=== PATIENT | male | born 1965 | race Caucasian/White ===

== ENCOUNTER → 2019-05-21 | Day surgery (SDC) | payer BC ==
[2019-05-19 16:01] LABS: BASOPHILS % 0.4 % (0.0-1.0); EOSINOPHILS # (AUTO) 0.4 (0.0-0.4); EOSINOPHILS % 4.5 % (0.0-6.0); HEMATOCRIT 45.1 % (38.2-49.6); HEMOGLOBIN 15.3 g/dL (14.0-18.0); LYMPHOCYTES # (AUTO) 1.7 (1.0-3.2); MEAN CORPUSCULAR HEMOGLOBIN 33.5 pg (28-32); MEAN CORPUSCULAR HGB CONC 33.9 g/dL (31-35); MEAN CORPUSCULAR VOLUME 98.7 fL (81-99); MONOCYTES # (AUTO) 0.9 (0.2-0.8); MONOCYTES % 9.2 % (4.4-11.3); NEUTROPHILS # (AUTO) 6.4 (2.1-6.9); NEUTROPHILS % 67.5 % (38.7-80.0); PLATELET COUNT 275 x10e3/uL (140-360); RED BLOOD COUNT 4.57 x10e6/uL (4.3-5.7); RED CELL DISTRIBUTION WIDTH 12.4 % (11.7-14.4)
[2019-05-19 16:09] LABS: INR 0.88; PROTHROMBIN TIME 12.4 seconds (11.9-14.5)
[2019-05-19 16:16] LABS: ALANINE AMINOTRANSFERASE 29 IU/L (0-55); ALBUMIN 3.9 g/dL (3.5-5.0); ALBUMIN/GLOBULIN RATIO 1.1 (0.8-2.0); ALKALINE PHOSPHATASE 66 IU/L (40-150); BLOOD UREA NITROGEN 8 mg/dL (7-26); BUN/CREATININE RATIO 9 (6-25); CALCIUM 9.6 mg/dL (8.4-10.2); CARBON DIOXIDE 25 mmol/L (22-29); CHLORIDE 100 mmol/L (98-107); CREATININE, SERUM 0.88 mg/dL (0.72-1.25); EST GLOMERULAR FILTRATION RATE > 60 ML/MIN (60-); GLUCOSE 79 mg/dL (74-118); SODIUM 135 mmol/L (136-145)
[~2019-05-21] VITALS: Ht 172.7 cm; Wt 77.1 kg
[~2019-05-21] MED LIST: FENTANYL CITRATE/PF 100MCG/2 ML INJ ONE; HEPARIN SOD/SOD CHLORIDE 2,000 ML ONE; IOPAMIDOL 370 MG/ML 200 ML INFUS..BTL INJ ONE; LEVOTHYROXINE50 MCG PO; LIDOCAINE HCL 2% LOCAL 20 ML VIAL ONE; LIOTHYRONINE SO5 MCG PO; LOSARTAN POTASS25 MG PO; MIDAZOLAM HCL 2 MG/2 ML VIAL ONE; SODIUM CHLORIDE 0.9% 1000ML 1,000 ML ONE; VERAPAMIL HCL 2.5 MG/ML 2 ML VIAL ONE
--- OUTSIDE RECORDS SUMMARY | 2019-05-21 07:37 | XMS REPORT | Clinical Summary ---
Author Author [facility] Organization [place] [facility] Address Unknown Phone Unavailable Care Team Providers Care [employer] Insurance [employer]iller Name Role Phone System, Provider Not In MD PCP Unavailable Allergies Comments Active Allergy Reactions Severity Noted Date Penicillins Swelling High 03/09/2019 Medications End Date Status Medication Sig Dispensed Refills Start Date Active levothyroxine (SYNTHROID, Take 50 mcg 0 LEVOXYL) 50 mcg tablet by mouth daily. 03/14/2019 predniSONE (DELTASONE) 20 Take 2 10 tablet 0 201 mg tablet tablets (40 9 mg total) by mouth daily for 5 days. Active Problems Not on file Encounters Care Team Description Date Type Specialty Robson Sanchez MD Atypical chest pain (Primary Dx); Uncomplicated asthma, unspecified asthma severity, unspecified whether persistent 03/09/2019 Emergency Emergency Medicine 03/09/2019 Travel after 05/20/2018 Social History Date Tobacco Use Types Packs/Day Years Used Former Smoker Smokeless Tobacco: Chew Current User Drinks/Week oz/Week Comments Alcohol Use 5 Cans of beer 5.0 Yes Sex Assigned at Date Recorded Not on file Industry Job Start Date Occupation Not on file Not on file Not on file Travel End Travel History Travel Start No recent travel history available. Last Filed Vital Signs Reading Time Taken Comments Vital Sign 176/75 03/09/2019 3:22 PM CDT Blood Pressure 86 03/09/2019 3:22 PM CDT Pulse 37.2 C (99 F) 03/09/2019 1:19 PM CDT Temperature 18 03/09/2019 3:22 PM CDT Respiratory Rate 95% 03/09/2019 3:22 PM CDT Oxygen Saturation - - Inhaled Oxygen Concentration - - Weight 172.7 cm (5' 8") 03/09/2019 1:19 PM CDT Height - - Body Mass Index Plan of Treatment Health Maintenance Due Date Last Done Comments COLONOSCOPY SCREENING 2015 SHINGLES VACCINES (#1) 2015 INFLUENZA VACCINE 03/26/2019 Procedures Comments Procedure Name Priority Date/Time Associated Diagnosis XR CHEST 1 VW PORTABLE STAT 03/09/2019 1:48 PM CDT D-DIMER STAT 03/09/2019 1:38 PM CDT ESTIMATED GFR STAT 03/09/2019 1:38 PM CDT B NATRIURETIC PEPTIDE STAT 03/09/2019 1:38 PM CDT TROPONIN STAT 03/09/2019 1:38 PM CDT CREATINE KINASE, TOTAL STAT 03/09/2019 (CPK) 1:38 PM CDT LIPASE LEVEL STAT 03/09/2019 1:38 PM CDT HEPATIC FUNCTION PANEL STAT 03/09/2019 1:38 PM CDT BASIC METABOLIC PANEL STAT 03/09/2019 1:38 PM CDT HC COMPLETE BLD COUNT STAT 03/09/2019 W/AUTO DIFF 1:38 PM CDT ECG ED PRELIMINARY Routine 03/09/2019 INTERPRETATION 1:32 PM CDT ECG 12-LEAD STAT 03/09/2019 1:29 PM CDT after 05/20/2018 Results * XR Chest 1 Vw Portable (03/09/2019 1:48 PM CDT) Specimen Narrative Performed At EXAMINATION:XR CHEST 1 VW PORTABLE RADIANT CLINICAL HISTORY:SOB XR CHEST 1 VW PORTABLEimages are submitted COMPARISON:NONE FINDINGS: The cardiac silhouette is normal in size. The pulmonary vasculature is within normal limits. The lung zones have no focal area of consolidation. There is no pleural effusion or pneumothorax. The lung zones are hyperinflated. There is no focal consolidation. IMPRESSION: 1. There is no acute cardiopulmonary disease. 2. The lung zones are hyperinflated. [id number] Procedure Note Hm Interface, Radiology Results Incoming - 03/09/2019 1:55 PM CDT EXAMINATION: XR CHEST 1 VW PORTABLE CLINICAL HISTORY: SOB XR CHEST 1 VW PORTABLE images are submitted COMPARISON: NONE FINDINGS: The cardiac silhouette is normal in size. The pulmonary vasculature is within normal limits. The lung zones have no focal area of consolidation. There is no pleural effusion or pneumothorax. The lung zones are hyperinflated. There is no focal consolidation. IMPRESSION: 1. There is no acute cardiopulmonary disease. 2. The lung zones are hyperinflated. [facility] [id number] Performing Organization Address City/[facility]/Zipcode Phone Number [place] [address] [place] [address] * Estimated GFR (03/09/2019 1:38 PM CDT) [facility] Estimated GFR 85 mL/min/1.73 m2 [place] Comment: [facility] G1 >=90 Normal or high G2 60-89Mildly decreased [id number] Mildly to moderately decreased [id number] Moderately to severely decreased G4 15-29Severely decreased G5 <15Kidney failure The eGFR was calculated using the Chronic Kidney Disease Epidemiology Collaboration (CKD-EPI) equation. Interpretation is based on recommendations of the National Kidney Foundation-Kidney Disease Outcomes Quality Initiative (NKF-KDOQI) published in 2014. Specimen Plasma specimen Performing Organization Address [facility] Phone Number [facility] [place] [address] [place] [address] HOSPITAL * Troponin (03/09/2019 1:38 PM CDT) [facility] Troponin <0.006 0.000 - 0.040 ng/mL [place] Comment: [facility] changed methodology effective: HOSPITAL 12/30/2018 at 10:00 am The new method has a 99th percentile cutoff of 0.040 ng/mL Specimen Plasma specimen Performing Organization Address [facility] Phone Number [facility] [address] [place] [address] PATHOLOGY AND [facility] MEDICINE [facility] [address] [place] [address] HOSPITAL * D-dimer (03/09/2019 1:38 PM CDT) [facility] D-dimer <0.27 0.00 - 0.40 ug/mL [place] Comment: FEU ANGLICAN Units are ug/ml F[facility]. [facility] When combined with low clinical probability, D-dimer results of less than 0.5 ug/ml FEU have a good negativepredictive value in excluding PE or DVT. For D-dimer results greater than 0.5ug/ml FEU further testing is indicated if PE or DVT is suspectedclinically. Elevated D-dimer results have been reported in DVT, PE, and DIC cases and may indicate the presence of a clot. D-dimer results may be elevated due to old age, , inflammatory diseases, trauma, post-operative states, sepsis, and malignancies. Specimen Blood Performing Organization Address City/State/Zipcode Phone Number [facility] [place] [address] [place] [address] PATHOLOGY AND GENOMIC MEDICINE [facility] [address] * CBC with platelet and differential (03/09/2019 1:38 PM CDT) [facility] WBC 13.4 (H) 4.2 - 11.0 k/uL [facility] RBC 4.19 4.04 - 5.86 m/uL [facility] HGB 14.0 13.0 - 17.3 g/dL [facility] HCT 41.6 34.0 - 45.0 % [facility] MCV 99.3 (H) 80.0 - 98.0 fL [facility] MCH 33.4 27.0 - 34.0 pg [facility] MCHC 33.7 31.5 - 36.5 g/dL [facility] RDW - SD 46.2 37.0 - 51.0 fL [facility] MPV 9.0 7.4 - 10.4 fL [facility] Platelet count 253 150 - 400 k/uL [facility] Nucleated RBC 0.00 /100 WBC [facility] Neutrophils 82.3 (H) 36.0 - 66.0 % [facility] Lymphocytes 7.1 (L) 24.0 - 44.0 % [facility] Monocytes 9.9 (H) 0.0 - 6.0 % [facility] Eosinophils 0.1 0.0 - 6.0 % [facility] Basophils 0.2 0.0 - 1.2 % [facility] Immature 0.4 0.0 - 1.0 % [place] granulocytes [facility] Specimen Blood Performing Organization Address City/[facility] Phone Number [facility] [place] [address] [place] [address] PATHOLOGY AND GENOMIC MEDICINE [address] * B natriuretic peptide (03/09/2019 1:38 PM CDT) Pathologist [facility] BNP 15 0 - 100 pg/mL [facility] Specimen Blood Performing Organization Address City/[facility] Phone Number [facility] [place] [address] [place] [address] PATHOLOGY AND GENOMIC MEDICINE [address] * Lipase level (03/09/2019 1:38 PM CDT) Pathologist [facility] Lipase 33 13 - 60 U/L [facility] Specimen Plasma specimen Performing Organization Address City/[facility] Phone Number [facility] [place] [address] [place] [address] PATHOLOGY AND GENOMIC MEDICINE [address] * Creatine kinase, total (CPK) (03/09/2019 1:38 PM CDT) Pathologist [facility] Creatine kinase 140 39 - 308 U/L [facility] Specimen Plasma specimen Performing Organization Address City/[facility] Phone Number [facility] [place] [address] [place] [address] PATHOLOGY AND GENOMIC MEDICINE [address] * Hepatic function panel (03/09/2019 1:38 PM CDT) Pathologist [facility] Albumin 4.0 3.5 - 5.0 g/dL [facility] Total bilirubin 1.3 (H) 0.2 - 1.2 mg/dL [facility] Bilirubin 0.2 0.0 - 0.4 mg/dL [place] direct [facility] Alkaline 58 0 - 129 U/L [place] phosphatase [facility] Protein 7.2 6.3 - 8.3 g/dL [facility] ALT 32 5 - 50 U/L [facility] AST 27 10 - 50 U/L [facility] Specimen Plasma specimen Performing Organization Address City/[facility] Phone Number [facility] [place] [address] [place] [address] PATHOLOGY AND GENOMIC MEDICINE [address] * Basic metabolic panel (03/09/2019 1:38 PM CDT) [facility] Sodium 136 135 - 150 mEq/L [facility] Potassium 3.9 3.5 - 5.0 mEq/L [facility] Chloride 97 (L) 98 - 112 mEq/L [facility] CO2 25 24 - 31 mmol/L [facility] Anion gap 14@ANIO 7 - 15 mEq/L [facility] BUN 12 7 - 18 mg/dL [facility] Creatinine 1.00 0.70 - 1.20 mg/dL [facility] Glucose 111 (H) 65 - 100 mg/dL [facility] Calcium 8.9 8.3 - 10.2 mg/dL [facility] Specimen Plasma specimen Performing Organization Address City/[facility] Phone Number [facility] [place] [facility] [place] [address] PATHOLOGY AND GENOMIC MEDICINE [address] * ECG ED Preliminary Interpretation - Not an Order (03/09/2019 1:32 PM CDT) Narrative Performed At Robson Sanchez MD 03/09/20192:54 PM ECG ED Preliminary Interpretation - Not an Order Performed by: Robson Sanchez MD Authorized by: Robson Sanchez MD ECG reviewed by ED Physician in the absence of a transport company manager: yes Interpretation: Interpretation: abnormal Rate: ECG rate:103 ECG rate assessment: tachycardic Rhythm: Rhythm: sinus tachycardia Ectopy: Ectopy: none QRS: QRS axis:Normal QRS intervals:Normal Conduction: Conduction: normal ST segments: ST segments:Normal T waves: T waves: flattening Flattening:AVL * ECG 12 lead (03/09/2019 1:29 PM CDT) Ventricular 103 [facility] rate Atrial rate 103 [facility] OR interval 136 [facility] QRSD interval 88 [facility] QT interval 348 [facility] QTC interval 455 [facility] P axis 1 74 [facility] QRS axis 1 63 [facility] T wave axis 64 [facility] EKG impression Sinus tachycardia-Otherwise [facility] normal ECG-No previous ECGs available- Specimen Narrative Performed At Performing Organization Address City/State/Zipcode Phone Number [facility] [address] [place] [address] after 05/20/2018 Insurance Type Payer Benefit Subscriber ID Effective Phone Address Plan / Dates Group PPO BCBS BCBS xxxxxxxxxxxx 2013-P CHOICE resent PPO/IZAIAH DE LOS [place]ANTOS PPO Advance Directives For more information, please contact: [phone] 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
[2019-05-21 08:25] VITALS: BP 126/85
[2019-05-21 10:00] VITALS: BP 117/81
--- NOTE | 2019-05-21 10:00 | NUR ---
100am bedside report received from [place] PRIETO. Identifier x2 .Alert oriented and appropriate, PERRLA, respirations even and unlabored to room air. Pulses x4 extremities equal and strong. Pedal pulses PT/DP x4. Cap fill brisk < 3 sec. Skin warm and dry integrity appears XXX. IV 20g to XXX presents healthy w/o s/s of infiltration or complaint. Abdomen soft and supple. pt offered toileting, denies need to urinate or defecate. No personal affects with patient. Family XXXXX. Pt and family verbalizes understanding of POC. Pre-Op Meds XXXXX. Ppatient transferred from XXXXX by medical lab specialist escort on bed, telemetry pack XXXXX. Currently w/o complaint of pain or need. Patient introduced to cath team and brief summary provided to team. Transferred to procedure table under own strength w/o duress. Patient secured to procedral table and patient prepped in usual fashion for XXXXX procedure. Hypercapnia monitoring intiated. -cgf Addendum: 05/21/19 at 1244 by Lorene Cabrera RN Please disregard above note. 1000am bedside report received from CONNER Osborne. Alert oriented and appropriate, PERRLA, respirations even and unlabored to room air. Pulses x4 extremity equal and strong. Pedal pulses PT/DPx4 Cap fill brisk < 3 sec. Skin warm and dry integrity appears D/I. IV 20g to left site presents healthy w/o s/s of infiltration or complaint. Abdomen soft and supple. pt offered toileting, denies need to urinate or defecate. No personal affects with patient. Family at bedside. Pt and family verbalizes understanding of POC. Currently w/o complaint of pain or need.ds/rn
[2019-05-21 10:15] VITALS: BP 103/87
[2019-05-21 10:30] VITALS: BP 112/89
--- NOTE | 2019-05-21 10:45 | NUR ---
1045 RADIAL Compression removal: Initial Cuff volume 12 cc 1045 -2 cc Removed No hematoma/bleeding noted with normal neurovascular function. 1100a -2cc Removed No hematoma/ bleeding noted with normal neurovascular function. 1115 -2cc Removed No hematoma/bleeding noted with normal neurovascular function. Air removal completed. Stasis achieved sterile 2x2,Tegaderm, Coban dressing No hematoma, bleeding noted with normal neurovascular function. Wrist splint in place. Pt instructed on POC. Ds/Rn
[2019-05-21 11:00] VITALS: BP 114/76
[2019-05-21 11:15] VITALS: BP 117/67
--- NOTE | 2019-05-21 11:45 | NUR ---
1145 Pt meets DC criteria. Rt TR band assessed for s/s of complication and presence of hematoma. Skin warm, dry, no discolor, and pulses present. IV removed from left hand. Distal tip appears intact. VS WNL. Pt denies pain, sob, or need at this time. Family at bedside.Review of discharge paperwork and follow up instructions. verbalized understanding. Pt to wheelchair and transported to front of hospital. Transferred to private vehicle under own strength w/o incident with DC paperwork in hand. -ds/rn
--- NOTE | 2019-05-21 17:10 | Operative Report ---
DATE OF PROCEDURE: SURGEON: Carlo Singleton DO PROCEDURES PERFORMED: 1. Conscious sedation, 30 minutes. 2. Selective coronary angiography x2. 3. Left heart catheterization. PREPROCEDURE DIAGNOSIS: Abnormal stress test. POSTPROCEDURE DIAGNOSIS: Nonobstructive coronary artery disease. ESTIMATED BLOOD LOSS: Less than 10 mL. SPECIMENS REMOVED: None. PROCEDURE IN DETAIL: After informed consent was obtained, the patient was brought to the cardiac catheterization laboratory in the fasting and nonsedated state. His right wrist was prepped and draped in usual sterile fashion. A 2% lidocaine was instilled into the right wrist for local anesthesia. Using micropuncture needle, the right radial artery was accessed via modified Seldinger technique and a 5/6 slender sheath was placed. Next, diagnostic coronary angiography and left heart catheterization were performed using a TIG catheter. The patient tolerated the procedure well with no immediate complications and transferred back to his room in stable condition. Hemostasis was achieved via TR band. PROCEDURAL FINDINGS: 1. Left main coronary artery is very short without significant disease. 2. Left anterior descending coronary artery has a proximal 30% to 40% non-flow limiting stenosis. The first diagonal branch is a small to medium caliber vessel with a mid 50% stenosis. 3. Left circumflex coronary artery provides two obtuse marginal vessels. The left circumflex prior to these OM has a 30% stenosis. 4. The right coronary artery is patent without significant disease and provides the posterior descending artery. 5. Left ventricular end-diastolic pressure is 14 mmHg with no aortic valve gradient present upon pullback. IMPRESSION: Nonobstructive coronary artery disease. RECOMMENDATIONS: Continue aggressive medical therapy including statin medications. Carlo Singleton DO BM/MODL /[id number]
== END | disposition home or self-care (01) ==
LOC: CATH LAB 07:35
PROVIDERS: ATTEND Internal Medicine Cardiovascular Disease
DX: I25.10 Atherosclerotic heart disease of native coronary artery without angina pectoris (principal); R94.39 Abnormal result of other cardiovascular function study; I10 Essential (primary) hypertension; E03.9 Hypothyroidism, unspecified; Z88.0 Allergy status to penicillin; Z01.812 Encounter for preprocedural laboratory examination
CPT/HCPCS: 36415; 80053; 85025; 85610; 93458; C1887; J2001; J2250; J3010; J7030; Q9967